=== PATIENT | female | born 1950 | race Caucasian/White ===

== ENCOUNTER 2016-06-19 09:46 | Day surgery (SDC) | payer OTHER ==
--- NOTE | ~2016-06-19 | OP ---
Record Of Operation [facility] [address] [place]. [address] NAME: JERI BERNARD : 50 STATUS : [facility]#: [id number] AGE: 65 ADM/REG DATE : 06/19/16 MR#: [id number] REPORT SERV DATE: 06/19/16 DICTATED BY: ANURADHA FORTE III DATE: 06/19/16 REPORT STATUS : Draft TRANSCRIBED BY: MODJeanie DATE: 06/19/16 DATE OF PROCEDURE: 06/19/2016 PREOPERATIVE DIAGNOSIS: Decubitus ulcer of the right buttocks with extension to the sacral area that has failed to respond to in-clinic debridements with a piece of inflammatory tissue that was fairly large in the central portion that could not be removed in the clinic. POSTOPERATIVE DIAGNOSIS: Decubitus ulcer of the right buttocks with extension to the sacral area that has failed to respond to in-clinic debridements with a piece of inflammatory tissue that was fairly large in the central portion that could not be removed in the clinic. PROCEDURE: Excisional debridement of the sacrum and right buttock area that was excisional using a Versajet, Bovie, and pickups and scissors. The Versajet was set on 10. The tissue was found to have slough inflammatory fat necrosis with purulent changes and a 4 x 5 cm mass that was in the right side of the sacral portion of the ulceration. The debridement all the way to the full muscles down to the bone, but not into the bone. The appearance, size, and postoperative dimensions showed it to have a clean bed with viable tissues and no purulence. Dimension were 12 x 3.3 x 1.8 with a tunnel at 9 o'clock that was 4.5 cm. Postoperative diagnosis is decubitus ulcer with devitalized tissue, mass in the central portion and seropurulent changes within the ulcer itself. The wound was dressed with Surgicel at the base as a contact layer and a wound VAC silver sponge. SURGEON: Anuradha Forte M.D. PHLEBOTOMY TECHNICIAN: Jessica Forte RN, [facility] ANESTHESIA: General with the patient in the prone gigi-knife position. ESTIMATED BLOOD LOSS: 20 mL. DRAINS USED: Wound VAC with silver sponge at 125 mmHg vacuum constant mode. Pathology was sent as well as culture and sensitivity for anaerobic, aerobic, Gram stain, fungal AFB. The patient will be sent home following her recovery. DESCRIPTION OF PROCEDURE: Time-out was called and after time-out had been agreed upon with no distention, the area of the patient's right buttocks and sacral region were prepped and draped in the operative field. The central portion of the opening of the patient's wound was explored and a retractor used to pull the tissue over enough to examine the inflammatory mass that was loosely nonadherent to surrounding tissues, but adhered to the sacral fascia. Using a Bovie current, the inflammatory mass was mobilized and excised. It was dissected and part sent for culture and sensitivity and the other part sent for pathologic evaluation. The area was then debrided over its entirety with the Versajet on a #10 setting. Bleeding was profuse, but easily controllable with cautery. The base of the ulceration had some undermining circumferentially that was about 2 cm. There was a 4.5 cm tunnel that was connecting to a 2 x 2.5 cm ulceration that was more over the area of the sacrum where as the larger opening and the patient initially encountered was a 6 x 7 cm right buttock decubitus Record Of Operation [facility] [address] [place]. [address] NAME: JERI BERNARD : 50 STATUS : [facility]#: [id number] AGE: 65 ADM/REG DATE : 06/19/16 MR#: [id number] REPORT SERV DATE: 06/19/16 DICTATED BY: ANURADHA FORTE III DATE: 06/19/16 REPORT STATUS : Draft TRANSCRIBED BY: ESDRASL DATE: 06/19/16 that communicated with a skin isthmus of 4.5 cm. This skin isthmus was not opened since we could get adequate exposure without sacrificing this otherwise normal viable tissue. After the area had been completely cleaned and good hemostasis achieved, Surgicel was placed down as a contact layer and silver sponge applied with wound VAC. The patient was sent back to the post anesthesia care unit in good condition. Estimated blood loss 20 mL. There were no complications. 2 g of Ancef were given to cover the patient's E. coli grown from the last cultures, but will not keep her on long-term antibiotics since we have excised the majority of the bulk of all infected tissue. RB/LUIS ALBERTO Anuradha Forte III, M.D. / [id number] CC: Glen Stanley III, M.D. [facility]
[~2016-06-19 09:46] MED LIST: ACCUNE1 INH; ADVIL PO; AMIT100 PO; ARAVA20 PO; B COMPLETE OR; BEN25 PO; DEPASPRINK PO; DILAUDID4 MG/ML IM; ESTRACE1 MG PO; ESTRATESHS PO; FLEX PO; FOLIC PO; HEMOCYTE PLUS PO; KLONO1 PO; L20 PO; L40 PO; LEVOTHROID75 MCG PO; LEVOTHROID88 MCG PO; LEVOTHYROXIN100 MCG PO; LIOR10 PO; LORT7 PO; LUNESTA3 MG PO; LYRICA100 MG PO; MELATONIN5 M1 PO; MEMANTINE PO; METHATAB5B PO; MORPHINE PUMP; NAMENDA10 MG PO; NAMENXR14 PO; NAP250 PO; NEO-SYNEPHRI0.05 % NAS; ORAPRED ODT10 MG OR; P5 PO; PAIN PUMP; PERCOCET1 TA4 PO; PERCOCET1 TA5 PO; PLAQ200B PO; PR25 PO; PREM9 PO; PRILO PO; PRILOSEC OTC20 MG PO; ROXICODONE15 MG PO; SAS500 PO; SAVELLA100 MG PO; SAVELLA50 MG PO; SEROQUEL300 MG PO; SOMATAB PO; SPIRIVA INH; SYN075 PO; VITAMIN D31000 UNIT PO; [UNRECOGNIZED DRUG - REMARK]
[2016-06-19 10:15] LABS: HEMOGLOBIN 11.4 g/dL (12.0-16.0); MEAN CORPUSCULAR HEMOGLOB 27.6 pg (26.0-34.0); PLATELET COUNT 283 10/3/uL (150-400); RED CELL COUNT 4.13 10/6/uL (4.0-5.6); WHITE BLOOD CELLS 15.6 10/3/uL (4.5-10.5)
[2016-06-19 10:17] LABS: MANUAL DIFF YES %
[2016-06-19 10:21] LABS: PARTIAL THROMBO TIME 27.7 SEC (22.5-37.2); PROTIME (NOT ORD) 13.3 SEC (12.0-14.5)
[2016-06-19 10:31] LABS: A/G RATIO 0.6 (0.7-1.9); ALKALINE PHOSPHATASE 95 U/L (45-117); BUN (BLOOD UREA NITROGEN) 25 MG/DL (6-23); CALCIUM, SERUM 9.4 MG/DL (8.5-10.4); CHLORIDE, SERUM 108 MMOL/L (96-112); CO2 (CARBON DIOXIDE) 31 MMOL/L (24-34); CREATININE 1.31 MG/DL (0.55-1.02); GFR AFRICAN AMERICAN 49 ML/MIN (>=60); GFR NON AFRICAN AMERICAN 43 ML/MIN (>=60); GLOBULIN 4.9 G/DL (2.5-4.1); GLUCOSE, SERUM 107 MG/DL (60-99); POTASSIUM, SERUM 4.3 MMOL/L (3.5-5.3); SGOT(AST) 16 U/L (5-40); SGPT(ALT) 21 U/L (5-65); SODIUM, SERUM 144 MMOL/L (135-148); TOTAL BILIRUBIN 0.1 MG/DL (0-1.2); TOTAL PROTEIN 7.9 G/DL (6.0-8.5)
[2016-06-19 10:32] LABS: BAND NEUTROPHILS 2 %; LYMPHOCYTES 12 %; LYMPHOCYTES ABSOLUTE (CALC) 1.87 10/3/uL (0.67-4.30); MONOCYTES 12 %; MONOCYTES ABSOLUTE (CALC) 1.87 10/3/uL (0.21-1.20); NEUTROPHILS ABSOLUTE (CALC) 11.86 10/3/uL (2.02-8.40); PLATELET ESTIMATE ADQ (ADEQUATE); SEGMENTED NEUTROPHIL (0) 74 %; TOTAL NUCLEATED CELLS 100
[2016-06-19 10:33] LABS: RBC MORPHOLOGY NORM (NORMAL)
[2016-08-26] MEDS ORDERED: AMITRIPTYLIN150 MG PO (15:45)
[2016-08-26] MEDS ORDERED: ESTRACE1 MG PO (15:45)
[2016-08-26] MEDS ORDERED: DEPASPRINK PO (15:46)
[2016-08-26] MEDS ORDERED: LEVOTHYROXIN50 MCG PO (15:47)
[2016-08-26] MEDS ORDERED: SEROQUEL300 MG PO (15:47)
[2016-08-26] MEDS ORDERED: NAMENDA10 MG PO (15:47)
[2016-08-26] MEDS ORDERED: P1 PO (15:47)
[2016-08-26] MEDS ORDERED: MULTIVIT/MIN PO (15:48)
[2016-08-26] MEDS ORDERED: ALBUTEROL0.083 % INH (15:48)
[2016-08-26] MEDS ORDERED: SOMATAB PO (15:48)
[2016-08-26] MEDS ORDERED: FERROUS SULF325 M1 PO (15:48)
[2016-08-26] MEDS ORDERED: DUONEB INH (15:49)
[2016-08-26] MEDS ORDERED: SAVELLA100 MG PO (15:49)
[2016-08-26] MEDS ORDERED: DSS PO (17:44)
[2016-08-26] MEDS ORDERED: MIRALAX POWDER1 PKT PO (17:45)
[2016-08-30] MEDS ORDERED: PRILO PO (09:55)
[2016-08-30] MEDS ORDERED: CEFADROXIL1 GM PO (09:56)
[2016-08-30] MEDS ORDERED: PROBIOTIC PO (09:56)
[2016-09-24] MEDS ORDERED: AMOXIL500 MG PO (10:46)
[2016-09-24] MEDS ORDERED: KRISTALOSE20 GM PO (10:48)
[2016-09-24] MEDS ORDERED: SENTAB PO (10:57)
[2016-09-24] MEDS ORDERED: P1 PO (11:07)
== END 2016-06-19 18:33 | disposition home or self-care (01) ==
LOC: SDC 09:46
PROVIDERS: Surgery
PROC: 0JB70ZZ Excision of Back Subcutaneous Tissue and Fascia, Open Approach (ICD-10-PCS; principal; 2016-06-19 11:00)
DX: L89.319 Pressure ulcer of right buttock, unspecified stage (principal); E03.9 Hypothyroidism, unspecified; G47.33 Obstructive sleep apnea (adult) (pediatric); K21.9 Gastro-esophageal reflux disease without esophagitis; G30.9 Alzheimer's disease, unspecified; F02.80 Dementia in other diseases classified elsewhere, unspecified severity, without behavioral disturbance, psychotic disturbance, mood disturbance, and anxiety; J44.9 Chronic obstructive pulmonary disease, unspecified; D64.9 Anemia, unspecified; F41.9 Anxiety disorder, unspecified; R33.9 Retention of urine, unspecified; M06.9 Rheumatoid arthritis, unspecified; Z88.5 Allergy status to narcotic agent; Z85.41 Personal history of malignant neoplasm of cervix uteri; Z90.49 Acquired absence of other specified parts of digestive tract; Z90.710 Acquired absence of both cervix and uterus; Z98.890 Other specified postprocedural states
CPT/HCPCS: 80053; 85025; 85610; 85730; 87015; 87070; 87075; 87077; 87102; 87116; 87186; 87205; 88304; 93005; J0690; J2250; J2270; J2405; J2710; J3010; P9045

== ENCOUNTER 2016-07-07 20:05 | Inpatient (IN) | payer OTHER ==
--- NOTE | ~2016-07-07 | CN ---
Consultation Report [facility] [address] [place]. [address] NAME: JERI BERNARD : 50 STATUS : ADM IN [facility]#: [id number] AGE: 65 ADM/REG DATE : 07/07/16 MR#: [id number] REPORT SERV DATE: 07/08/16 DICTATED BY: ANURADHA FORTE III DATE: 07/08/16 REPORT STATUS : Draft TRANSCRIBED BY: MODL DATE: 07/08/16 DATE OF CONSULTATION: 07/08/2016 HISTORY OF PRESENT ILLNESS: The patient is a 65-year-old debilitated female, known to me from [facility]up [facility]. The patient was admitted on 07/07/2016 with generalized weakness and shaking and leukocytosis. She was noted to be with change in her condition prompting an emergency room evaluation. She has a significant history with wound issues with a stage IV decubitus ulceration in the sacrum that was surgically treated by this physician on 06/19/2016 and operating room debridement, culture, and wound VAC application. At that time, the patient had a culture done that showed Enterococcus avium, group D E. coli, and Morganella morganii organisms as well as a diphtheroid organism that was not identified. The patient also noted to have ulcers of her lower extremities. Patient's history given by her on admission said that she had been doing well until she started getting shaky and was developing a weakness so severe that she was passing out. Recently, she said she had been taken off her levothyroxine by her primary care physician without stated indication. The patient has been followed with a wound VAC per home health care application, but has not been seen in the clinic for followup by this physician since her surgery on 06/19/2016 even though she was supposed to be followed up before now. She is also on BiPAP at home. She was noted to have a leukocytosis, acute kidney injury with blood pressure 106/38 and when she arrived that responded to fluid boluses. The patient has a past history of COPD, obstructive sleep apnea on BiPAP, gastroesophageal reflux disease, hypothyroidism, dementia, chronic pain, stage IV decubitus ulcer of the sacrum, and has a manic predominant bipolar disorder. SOCIAL HISTORY: Negative for alcohol, tobacco, or illegal drugs. FAMILY HISTORY: Noncontributory. PHYSICAL EXAMINATION: GENERAL: The patient is an ill-appearing female, in no acute distress. HEENT: Unremarkable. NECK: Supple. HEART: Regular rate and rhythm. CHEST: Relatively clear with diminished inspiratory effort. She had some neuropathy in her lower extremities and ulcerations there. She has a large sacral decubitus which is relatively clean and with some tunneling effect from right to left with a dimension of 12 x 3.3 x 1.8 with a tunnel at the 9 o'clock position that was 4.5 cm Consultation Report [address] [place]. [address] NAME: JERI BERNARD : 50 STATUS : ADM IN PAT#: [id number] AGE: 65 ADM/REG DATE : 07/07/16 MR#: [id number] REPORT SERV DATE: 07/08/16 DICTATED BY: ANURADHA FORTE III DATE: 07/08/16 REPORT STATUS : Draft TRANSCRIBED BY: LUIS ALBERTO DATE: 07/08/16 in length. Her wound VAC had been removed and wet-to-dry dressings placed on admission. The ulcerations of her lower extremities were noted and there is a lateral small ulceration of the right lateral ankle and a medial ulceration of the left foot, both of which were relatively clean and can be treated without mechanical debridement using Santyl. IMPRESSION: She has decubitus ulcers of the sacrum, bilateral lower extremities at the ankle and foot level, none of which are acute or potentially contributing to her sepsis or leukocytosis. We will resume vacuum therapy to the sacral wound and Santyl to the lower extremity wounds and follow her up in the [facility]. JANELL/LUIS ALBERTO Anuradha Forte III, M.D. / [id number] CC: Rolando Lezama Jr, MD Mario Mariani, M.D.
--- NOTE | ~2016-07-07 | CN ---
Consultation Report [facility] [address] [place]. [address] NAME: JERI BERNARD : 50 STATUS : ADM IN PAT#: [id number] AGE: 65 ADM/REG DATE : 07/07/16 MR#: [id number] REPORT SERV DATE: 07/09/16 DICTATED BY: LUPE FERNÁNDEZ DATE: 07/09/16 REPORT STATUS : Draft TRANSCRIBED BY: MODJeanie DATE: 07/09/16 DATE OF CONSULTATION: 07/09/2016 HISTORY: This is a 65-year-old white female, who has been admitted to the hospital on 07/07/2016 with weakness and general debility. She is chronically ill. She and her say she has had about 17 different back surgeries for multilevel back problems. She has limited mobility, although she says she ambulate some, she spends most of her time in bed. She has been found during this admission to have urinary retention with a residual volume of over 1000 mL upon catheterization. She says that she did not even feel her distended bladder. She typically voids. She feels like she voids with a decent stream of urine at home, although her tells me that she essentially voids completely by Crede maneuver. She also voids very frequently in small amounts. She has occasional urinary incontinence, but not that often. She reports an occasional urinary tract infection, but only perhaps one a year or so. Currently, she has a Mitchell catheter indwelling. She denies any previous history of renal disease or stone. She has multiple medical issues. Aside from her back problems, she has stage IV decubitus ulcer along with other skin ulcers. She has been seen by Dr. Forte in the clinic and actually had a recent debridement of her decubitus. She also has bipolar disorder, question of dementia, reflux, sleep apnea, COPD. SOCIAL HISTORY: She is . She does not drink or smoke. MEDICATIONS: Include Elavil, Depakote, Seroquel, albuterol, Soma, Estrace, iron, Namenda, Savella, prednisone. ALLERGIES: SHE IS ALLERGIC TO METHOTREXATE. PHYSICAL EXAMINATION: GENERAL: She is a pleasant white female. She appears in good spirits. She is alert, oriented, and conversive. She is afebrile. VITAL SIGNS: Stable. HEENT: Pupils equal, round, and reactive. Extraocular movements intact. Oropharynx is clear. NECK: Supple. No adenopathy. LUNGS: Clear. HEART: Regular. ABDOMEN: Soft, nontender. GENITOURINARY: Bladder is not palpable. There is a Mitchell catheter draining clear urine, indwelling. Urine output has been 1750 mL. LABORATORY VALUES: Creatinine on admission was 1.94, today it is 1.13. White cell count 9.6, H and H 10 and 32. Urinalysis is negative. IMPRESSION: 1. Urinary retention, which may be chronic now status post Mitchell catheter placement. 2. Chronic voiding dysfunction (voiding with Crede maneuver), likely secondary to a Consultation Report [address] [place]. [address] NAME: JERI BERNARD : 50 STATUS : ADM IN [facility]#: [id number] AGE: 65 ADM/REG DATE : 07/07/16 MR#: [id number] REPORT SERV DATE: 07/09/16 DICTATED BY: LUPE FERNÁNDEZ DATE: 07/09/16 REPORT STATUS : Draft TRANSCRIBED BY: LUIS ALBERTO DATE: 07/09/16 hypotonic neurogenic bladder. 3. Multilevel back disease status post multiple back surgeries. 4. Bipolar disorder, on multiple medications. 5. Possible dementia. 6. Acute renal insufficiency, improving. 7. Limited mobility. 8. History of decubitus as well as other skin ulcerations. 9. Chronic obstructive pulmonary disease. 10.Sleep apnea. RECOMMENDATIONS: I am going to check a non-contrast CT of her abdomen and pelvis to rule out hydronephrosis given what I suspect is a chronic bladder emptying problem. Her bladder dysfunction could be multifactorial resulting from neurologic injury from her multiple back surgeries and also her medications for bipolar disease could be contributory as well. At any rate, I suspect she is going to need a Mitchell for the foreseeable future. Neither she nor her have any interest in doing clean intermittent catheterization. For now, I would leave her Mitchell indwelling and will plan on home health changing it anywhere from every two to four weeks. I will plan on scheduling an outpatient cystoscopic exam and eventual urodynamic studies as well to help decide on long-term management. Thank you for the consult. CYNTHIA/LUIS ALBERTO Lupe Fernández M.D. / [id number] CC: Rolando Lezama Jr, MD Mario Mariani, M.D.
--- NOTE | ~2016-07-07 | DS ---
Discharge Summary [facility] [address] [place]. [address] NAME: JERI BRENARD : 50 STATUS : DIS IN PAT#: [id number] AGE: 65 ADM/REG DATE : 07/07/16 MR#: [id number] REPORT SERV DATE: 07/11/16 DICTATED BY: SCOTT VELASQUEZ DATE: 07/10/16 REPORT STATUS : Draft TRANSCRIBED BY: MODL DATE: 07/10/16 ADMISSION DATE: 07/07/2016 DISCHARGE DATE: 07/10/2016 BRIEF DISCHARGE DIAGNOSES: 1. Generalized weakness. 2. Stage IV sacral decubitus. 3. Acute kidney injury, now resolved. 4. Leukocytosis, now resolved. 5. Obstructive sleep apnea with BiPAP, but noncompliant. 6. Chronic obstructive pulmonary disease. 7. Gastroesophageal reflux. 8. Hypothyroidism. 9. Dementia. 10.Chronic pain. 11.Bipolar disorder. 12.Urinary retention, status post Mitchell catheter placement. CONSULTANTS DURING THIS HOSPITALIZATION: 1. Ben Forte M.D. of Wound Care Surgery. 2. Gopal Logan M.D. and Alex Fenton M.D. of Urology. INVASIVE PROCEDURES DONE DURING THIS HOSPITALIZATION: None. BRIEF HISTORY OF PRESENT ILLNESS: The patient is a 65-year-old female with stage IV sacral decubitus, came in with generalized weakness, shaking, so she was admitted. For detailed history and physical exam, please see note dictated by Dr. Alfredo Vanegas on 07/07/2016. HOSPITAL COURSE: After being admitted to the hospital, this patient was cared for by Dr. Rolando Lezama. According to him, there was no urinary tract infection, so oral antibiotics were discontinued. Dr. Forte saw the patient in consultation and recommended wound vacuum and no further debridement, not a source of leukocytosis as he had mentioned previously. This patient was given IV hydration. She was having difficulty voiding. A Mitchell catheter was placed and that seemed to significantly improve her kidney function. She also had suffered from some constipation that has now resolved. She has obstructive sleep apnea and has been noncompliant with BiPAP in the home setting. She was given nebulizing treatments for her COPD. Currently, she is doing well medically, her creatinine today is 0.9. Her white count has normalized to 8.8, and she is medically stable enough to be sent to rehab. DISCHARGE DISPOSITION: To [facility] for [facility]. DISCHARGE ACTIVITY: Per facility. DISCHARGE DIET: Low-sodium diet. Discharge Summary [facility] [place]. [address] NAME: JERI BERNARD : 50 STATUS : DIS IN PAT#: [id number] AGE: 65 ADM/REG DATE : 07/07/16 MR#: [id number] REPORT SERV DATE: 07/11/16 DICTATED BY: SCOTT VELASQUEZ DATE: 07/10/16 REPORT STATUS : Draft TRANSCRIBED BY: LUIS ALBERTO DATE: 07/10/16 DISCHARGE MEDICATIONS: Santyl ointment to the ulcer and wound vacuum, Elavil 300 mg once at bedtime, Savella 100 mg once daily, Soma 350 mg every six hours scheduled for muscle relaxant, Depakote 500 mg once at bedtime, estradiol 1 mg every morning, iron 325 mg once daily, Namenda 10 mg twice daily, Seroquel 300 mg once at bedtime, prednisone 5 mg p.o. every morning, maintenance therapy for rheumatoid arthritis. Albuterol one neb every four hours p.r.n. for shortness of breath. Levothyroxine 50 mcg once daily. DISCHARGE FOLLOWUP: With Dr. Per Masters post rehab, with Dr. Ben Forte in the [facility] post rehab. More than 35 minutes spent planning this patient's discharge, reconciling medications, and arranging proper transfer to rehab and documenting this discharge. ARABELLA/LUIS ALBERTO Scott Velasquez M.D. / [id number] CC: Glen Aldrich M.D. Robert Barnett III, M.D.
--- NOTE | ~2016-07-07 | HP ---
History And Physical [place] [id number] [facility] [place]. [address] NAME: JERI BERNARD : 50 STATUS : ADM IN [facility]#: [id number] AGE: 65 ADM/REG DATE : 07/07/16 MR#: [id number] REPORT SERV DATE: 07/08/16 DICTATED BY: ALFREDO BERMAN DATE: 07/08/16 REPORT STATUS : Draft TRANSCRIBED BY: MODL DATE: 07/08/16 DATE OF ADMISSION: 07/07/2016 CHIEF COMPLAINT: Generalized weakness and shaking. HISTORY OF PRESENT ILLNESS: This is a 65-year-old female who presents to the emergency room, has a history of COPD; hypothyroidism; stage IV decubitus ulcer, was seen by Dr. Forte; bipolar disorder; obstructive sleep apnea, noncompliant with therapy, who presents to the emergency room at [facility] with the above-mentioned complaint. History is obtained from the patient, her who is at bedside, and reviewing data available on the [employer] system. According to her and the patient, she had been in her usual state of health until about a month or so, when she started having shaking if she gets up to use the bedside commode or to walk. This has progressively worsened and they feel she is too weak, almost to the point of passing out. For some unclear reason, she has been taken off her levothyroxine by her primary care physician as well, no clear indication why. She also has a sacral decubitus ulcer followed by [facility], but seen by and debrided by Dr. Forte here in the [facility] as well. She has also not been compliant with using her BiPAP at home. With all this going on, she was getting weaker by the day and is unable to perform activities of daily living by herself. They decided to come to the emergency room to be evaluated. In the emergency room, initial workup revealed she had leukocytosis, acute kidney injury, and her initial blood pressure upon arrival was 106/30 which slowly increased to 116/81 with fluid boluses. Hospitalist Service was asked to admit her for further evaluation and treatment. At the time of my evaluation, she was comfortable at rest in bed and not in any acute distress. She denied any chest pain or palpitations at rest. She had no orthopnea. She had no cough, hemoptysis, night sweats, or weight loss. She denied any recent falls or loss of consciousness. No history of fevers or chills. No history of nausea, vomiting, or diarrhea. No other history of recent travel or exposures other than those mentioned above. PAST MEDICAL HISTORY: Significant for COPD; obstructive sleep apnea with BiPAP; gastroesophageal reflux disease; hypothyroidism; dementia; chronic pain; stage IV decubitus ulcer, seen by Dr. Forte and followed by Home Health. She also has manic predominant bipolar disorder. SOCIAL HISTORY: She does not smoke, drink, or use recreational drugs. FAMILY HISTORY: Noncontributory. MEDICATIONS: Her medications at home were reviewed by me in the chart today and reordered by me. History And Physical [address] [address] NAME: JERI BERNARD : 50 STATUS : ADM IN [facility]#: [id number] AGE: 65 ADM/REG DATE : 07/07/16 MR#: [id number] REPORT SERV DATE: 07/08/16 DICTATED BY: ALFREDO BERMAN DATE: 07/08/16 REPORT STATUS : Draft TRANSCRIBED BY: LUIS ALBERTO DATE: 07/08/16 REVIEW OF SYSTEMS: As in history of present illness. All other systems were reviewed in detail and are quite unremarkable. PHYSICAL EXAMINATION: GENERAL: This is a pleasant 65-year-old, not in any acute distress. HEENT: Head is atraumatic, normocephalic. She is alert, awake, oriented to time, place, and person. Pupils are equal, reacting to light and accommodating. External ocular muscles are intact. Membranes are moist and pink. Sclerae are nonicteric. NECK: Supple with no jugular venous distention, lymphadenopathy, or thyromegaly. LUNGS: Clear to auscultation with no wheezes, rubs, or crackles. HEART: Heart sounds were regular with no murmurs, rubs, or gallops. ABDOMEN: Soft, nontender. Bowel sounds are present. EXTREMITIES: Showed no cyanosis, clubbing, or edema. NEUROLOGIC: Grossly intact. No focal sensory or motor deficits. Higher functions appeared intact. Gait was not examined. SKIN: On her back, I did get to see her decubitus ulcer with a wound VAC in place. The area looks clean and dry. VITAL SIGNS: Today showed a temperature of 97.4, pulse 89, respirations 15 a minute. Blood pressure at the time of my evaluation was 118/59, oxygen saturations were 99%, breathing 3 L of oxygen via nasal cannula. LABORATORY DATA: Reviewed on the [employer] system showed sodium of 140, potassium 4.0, chloride 104, and CO2 of 30. BUN was 47 with a creatinine of 1.94, which is up from her baseline of 1.0 to 1.3. Her blood glucose was 116. Liver numbers appeared within normal limits. CPK was 25. AST and ALT were within normal limits so was alkaline phosphatase. Her troponin was 0.02 today. Her lactate was 1.2 today and CBC showed a white blood cell count of 14,700; hemoglobin was 11.4; hematocrit 36.3; and platelet count was 242,000. No imaging was performed in the emergency room today. Urinalysis was not done in the ER. A 12-lead EKG done in the emergency room was reviewed and interpreted by me. There is normal sinus rhythm with sinus arrhythmia at a rate of 74 per minute. IMPRESSION: 1. Generalized weakness. 2. Leukocytosis. 3. Acute kidney injury. 4. Obstructive sleep apnea with BiPAP, but noncompliant. 5. Chronic obstructive pulmonary disease. 6. Gastroesophageal reflux disease. 7. Hypothyroidism. 8. Dementia. 9. Chronic pain. 10.Stage IV decubitus ulcer, seen by Dr. Forte. 11.Bipolar disorder. PLAN: We will admit Ms. Bernard to the Hospitalist Service with telemetry for close monitoring. History And Physical [address] [address] NAME: JERI BERNARD : 50 STATUS : ADM IN [facility]#: [id number] AGE: 65 ADM/REG DATE : 07/07/16 MR#: [id number] REPORT SERV DATE: 07/08/16 DICTATED BY: ALFREDO BERMAN DATE: 07/08/16 REPORT STATUS : Draft TRANSCRIBED BY: LUIS ALBERTO DATE: 07/08/16 After cultures are obtained, we will start her on empiric IV antibiotics at this time, check a urinalysis, and check a procalcitonin level. We will also start her on IV fluids for volume resuscitation, check her chemistry and electrolytes in the morning and replace as needed. Meanwhile, we will go ahead and maximize her bronchodilator treatments, and continue her supplemental oxygen therapy. We will also check her TSH and continue thyroid replacement therapy. We will consult Wound Care to see her and also Dr. Forte. We will continue all other medications and treatments at this time and place her on unfractionated heparin for DVT prophylaxis while she is here. I have discussed the above plans with the patient and her , questions were answered, and they are agreeable to the above recommendations. Hospitalist Service will be following her during her stay here. /LUIS ALBERTO Alfredo Berman M.D. / [id number] CC: Hal Perez M.D.
[2016-07-07 21:48] LABS: ER CBC TAT 0 Hrs 05 Mins; HEMATOCRIT 36.3 % (36.0-48.0); HEMOGLOBIN 11.4 g/dL (12.0-16.0); MEAN CORPUS HGB CONC 31.4 g/dL (32.0-36.0); MEAN CORPUSCULAR HEMOGLOB 28.9 pg (26.0-34.0); MEAN CORPUSCULAR VOLUME 91.9 fL (80-100); MEAN PLATELET VOLUME 8.9 fL (9.2-13.0); PLATELET COUNT 242 10/3/uL (150-400); RBC DISTRIBUTION WIDTH 19.5 % (12.0-16.0); RED CELL COUNT 3.95 10/6/uL (4.0-5.6); WHITE BLOOD CELLS 14.7 10/3/uL (4.5-10.5)
[2016-07-07 21:49] LABS: MANUAL DIFF YES %
[2016-07-07 21:58] LABS: INTERNATIONAL NORMAL RATI 1.1 UNITS (-); PARTIAL THROMBO TIME 26.2 SEC (22.5-37.2); PROTIME (NOT ORD) 14.1 SEC (12.0-14.5)
[2016-07-07 22:03] LABS: ALBUMIN 2.9 G/DL (3.5-5.0); ALKALINE PHOSPHATASE 103 U/L (45-117); DIRECT BILIRUBIN < 0.1 MG/DL (0.0-0.4); INDIRECT BILIRUBIN(NOT ORDER) 0.1 MG/DL (0.1-0.9); SGOT(AST) 11 U/L (5-40); SGPT(ALT) 12 U/L (5-65); TOTAL BILIRUBIN 0.2 MG/DL (0-1.2); TOTAL PROTEIN 7.3 G/DL (6.0-8.5)
[2016-07-07 22:04] LABS: CALCIUM, SERUM 8.8 MG/DL (8.5-10.4); CHEST PAIN PROFILE TAT 0 Hrs 21 Mins; CHLORIDE, SERUM 104 MMOL/L (96-112); CO2 (CARBON DIOXIDE) 30 MMOL/L (24-34); CPK 25 U/L (0-200); GFR AFRICAN AMERICAN 31 ML/MIN (>=60); GFR NON AFRICAN AMERICAN 27 ML/MIN (>=60); GLUCOSE, SERUM 116 MG/DL (60-99); SODIUM, SERUM 140 MMOL/L (135-148); TROPONIN I <0.02 NG/ML (<0.05)
[2016-07-07 22:05] LABS: BUN (BLOOD UREA NITROGEN) 47 MG/DL (6-23); CREATININE 1.94 MG/DL (0.55-1.02); ER DIFF TAT 0 Hrs 22 Mins; SEGMENTED NEUTROPHIL (0) 75 %; TOTAL NUCLEATED CELLS 100
[2016-07-07 22:06] LABS: ANISOCYTOSIS 1+ (5-10/OIF) (0-5/OIF); BAND NEUTROPHILS 12 %; IMMATURE GRANS ABSOLUTE (CALC) 0.74 10/3/uL (0.0-0.11); LYMPHOCYTES 3 %; LYMPHOCYTES ABSOLUTE (CALC) 0.44 10/3/uL (0.67-4.30); METAMYELOCYTES 5 %; MONOCYTES 5 %; MONOCYTES ABSOLUTE (CALC) 0.74 10/3/uL (0.21-1.20); NEUTROPHILS ABSOLUTE (CALC) 12.79 10/3/uL (2.02-8.40); PLATELET ESTIMATE ADQ (ADEQUATE)
[2016-07-07] MEDS ORDERED: DEPASPRINK PO (22:48)
[2016-07-07] MEDS ORDERED: SEROQUEL300 MG PO (22:49)
[2016-07-07] MEDS ORDERED: ESTRACE1 MG PO (22:49)
[2016-07-07] MEDS ORDERED: SOMATAB PO (22:49)
[2016-07-07] MEDS ORDERED: AMIT100 PO (22:49)
[2016-07-07] MEDS ORDERED: SAVELLA100 MG PO (22:50)
[2016-07-07] MEDS ORDERED: NAMENDA10 MG PO (22:50)
[2016-07-07] MEDS ORDERED: P5 PO (22:52)
[2016-07-07] MEDS ORDERED: ALBUTEROL0.083 % INH (22:52)
[2016-07-07] MEDS ORDERED: FERROUS SULF325 M1 PO (22:52)
[2016-07-07] MEDS ORDERED: CIP5 PO (22:54)
[2016-07-08 02:25] LABS: PROCALCITONIN <0.05 ng/mL (<0.5)
[2016-07-08 03:38] LABS: ASCORBIC ACID (UR NOT ORDER) NEG (NEG); BILIRUBIN, URINE NEGATIVE (NEG); KETONE, URINE NEGATIVE (NEG); LEUKOCYTE ESTERASE(NOT OR NEG (NEG); WBC (NOT ORDERED) (RFLEX) < 1 (0-5)
[2016-07-08 05:28] LABS: BASOPHILS 0.2 %; BASOPHILS ABSOLUTE 0.02 10/3/uL (0.0-0.16); EOSINOPHILS 2.9 %; EOSINOPHILS ABSOLUTE 0.35 10/3/uL (0.0-0.53); HEMOGLOBIN 9.9 g/dL (12.0-16.0); IMMATURE GRANULOCYTES 3.9 %; IMMATURE GRANULOCYTES ABSOLUTE 0.47 10/3/uL (0.0-0.11); LYMPHOCYTES 8.6 %; LYMPHOCYTES ABSOLUTE 1.04 10/3/uL (0.67-4.30); MEAN CORPUS HGB CONC 31.5 g/dL (32.0-36.0); MEAN CORPUSCULAR HEMOGLOB 28.9 pg (26.0-34.0); MEAN CORPUSCULAR VOLUME 91.8 fL (80-100); MEAN PLATELET VOLUME 8.8 fL (9.2-13.0); MONOCYTES 7.9 %; MONOCYTES ABSOLUTE 0.96 10/3/uL (0.21-1.20); NEUTROPHILS 76.5 %; NEUTROPHILS ABSOLUTE 9.26 10/3/uL (2.02-8.40); PLATELET COUNT 216 10/3/uL (150-400); RBC DISTRIBUTION WIDTH 19.5 % (12.0-16.0); RED CELL COUNT 3.42 10/6/uL (4.0-5.6); WHITE BLOOD CELLS 12.1 10/3/uL (4.5-10.5)
[2016-07-08 05:29] LABS: HEMATOCRIT 31.4 % (36.0-48.0); MANUAL DIFF NO %
[2016-07-08 05:51] LABS: BUN (BLOOD UREA NITROGEN) 41 MG/DL (6-23); CALCIUM, SERUM 8.2 MG/DL (8.5-10.4); CHLORIDE, SERUM 106 MMOL/L (96-112); CO2 (CARBON DIOXIDE) 29 MMOL/L (24-34); CREATININE 1.62 MG/DL (0.55-1.02); GFR AFRICAN AMERICAN 38 ML/MIN (>=60); GFR NON AFRICAN AMERICAN 33 ML/MIN (>=60); GLUCOSE, SERUM 133 MG/DL (60-99); PHOSPHORUS, SERUM 2.3 MG/DL (2.5-4.5); POTASSIUM, SERUM 4.2 MMOL/L (3.5-5.3); SODIUM, SERUM 141 MMOL/L (135-148)
[2016-07-08] MEDS ORDERED: SYN.05 PO (10:51)
[2016-07-09 07:14] LABS: HEMOGLOBIN 10.1 g/dL (12.0-16.0); MEAN CORPUS HGB CONC 31.6 g/dL (32.0-36.0); MEAN CORPUSCULAR HEMOGLOB 29.2 pg (26.0-34.0); MEAN CORPUSCULAR VOLUME 92.5 fL (80-100); MEAN PLATELET VOLUME 9.1 fL (9.2-13.0); PLATELET COUNT 226 10/3/uL (150-400); RED CELL COUNT 3.46 10/6/uL (4.0-5.6); WHITE BLOOD CELLS 9.6 10/3/uL (4.5-10.5)
[2016-07-09 07:16] LABS: MANUAL DIFF YES %
[2016-07-09 07:23] LABS: BUN (BLOOD UREA NITROGEN) 23 MG/DL (6-23); CALCIUM, SERUM 8.4 MG/DL (8.5-10.4); CHLORIDE, SERUM 109 MMOL/L (96-112); CO2 (CARBON DIOXIDE) 25 MMOL/L (24-34); CREATININE 1.13 MG/DL (0.55-1.02); GFR AFRICAN AMERICAN 59 ML/MIN (>=60); GFR NON AFRICAN AMERICAN 51 ML/MIN (>=60); GLUCOSE, SERUM 107 MG/DL (60-99); POTASSIUM, SERUM 4.4 MMOL/L (3.5-5.3); SODIUM, SERUM 143 MMOL/L (135-148)
[2016-07-09 08:07] LABS: ANISOCYTOSIS 1+ (5-10/OIF) (0-5/OIF); BAND NEUTROPHILS 3 %; EOSINOPHILS 2 %; EOSINOPHILS ABSOLUTE (CALC) 0.19 10/3/uL (0.0-0.53); IMMATURE GRANS ABSOLUTE (CALC) 0.19 10/3/uL (0.0-0.11); LYMPHOCYTES 20 %; LYMPHOCYTES ABSOLUTE (CALC) 1.92 10/3/uL (0.67-4.30); METAMYELOCYTES 1 %; MONOCYTES 5 %; MONOCYTES ABSOLUTE (CALC) 0.38 10/3/uL (0.21-1.20); NEUTROPHILS ABSOLUTE (CALC) 6.91 10/3/uL (2.02-8.40); PLATELET ESTIMATE ADQ (ADEQUATE); SEGMENTED NEUTROPHIL (0) 69 %; TOTAL NUCLEATED CELLS 100
[2016-07-10 06:11] LABS: CALCIUM, SERUM 8.1 MG/DL (8.5-10.4); CHLORIDE, SERUM 112 MMOL/L (96-112); CO2 (CARBON DIOXIDE) 26 MMOL/L (24-34); GFR AFRICAN AMERICAN 78 ML/MIN (>=60); GFR NON AFRICAN AMERICAN 67 ML/MIN (>=60); GLUCOSE, SERUM 121 MG/DL (60-99); POTASSIUM, SERUM 4.2 MMOL/L (3.5-5.3); SODIUM, SERUM 146 MMOL/L (135-148)
[2016-07-10 06:13] LABS: HEMATOCRIT 30.8 % (36.0-48.0); HEMOGLOBIN 9.6 g/dL (12.0-16.0); MEAN CORPUS HGB CONC 31.2 g/dL (32.0-36.0); MEAN CORPUSCULAR HEMOGLOB 28.9 pg (26.0-34.0); MEAN CORPUSCULAR VOLUME 92.8 fL (80-100); MEAN PLATELET VOLUME 8.7 fL (9.2-13.0); PLATELET COUNT 225 10/3/uL (150-400); RED CELL COUNT 3.32 10/6/uL (4.0-5.6); WHITE BLOOD CELLS 8.8 10/3/uL (4.5-10.5)
[2016-07-10 06:14] LABS: MANUAL DIFF YES %
[2016-07-10 06:17] LABS: BUN (BLOOD UREA NITROGEN) 13 MG/DL (6-23)
[2016-07-10 06:42] LABS: BAND NEUTROPHILS 3 %; EOSINOPHILS 4 %; EOSINOPHILS ABSOLUTE (CALC) 0.35 10/3/uL (0.0-0.53); IMMATURE GRANS ABSOLUTE (CALC) 0.18 10/3/uL (0.0-0.11); LYMPHOCYTES 19 %; LYMPHOCYTES ABSOLUTE (CALC) 1.67 10/3/uL (0.67-4.30); METAMYELOCYTES 1 %; MONOCYTES 4 %; MONOCYTES ABSOLUTE (CALC) 0.35 10/3/uL (0.21-1.20); MYELOCYTES 1 %; NEUTROPHILS ABSOLUTE (CALC) 6.25 10/3/uL (2.02-8.40); SEGMENTED NEUTROPHIL (0) 68 %; TOTAL NUCLEATED CELLS 100
[2016-07-10 06:43] LABS: ANISOCYTOSIS 1+ (5-10/OIF) (0-5/OIF); PLATELET ESTIMATE ADQ (ADEQUATE); RBC MORPHOLOGY ABN (NORMAL)
[2016-08-26] MEDS ORDERED: AMITRIPTYLIN150 MG PO (15:45)
[2016-08-26] MEDS ORDERED: ESTRACE1 MG PO (15:45)
[2016-08-26] MEDS ORDERED: DEPASPRINK PO (15:46)
[2016-08-26] MEDS ORDERED: P1 PO (15:47)
[2016-08-26] MEDS ORDERED: LEVOTHYROXIN50 MCG PO (15:47)
[2016-08-26] MEDS ORDERED: SEROQUEL300 MG PO (15:47)
[2016-08-26] MEDS ORDERED: NAMENDA10 MG PO (15:47)
[2016-08-26] MEDS ORDERED: FERROUS SULF325 M1 PO (15:48)
[2016-08-26] MEDS ORDERED: SOMATAB PO (15:48)
[2016-08-26] MEDS ORDERED: ALBUTEROL0.083 % INH (15:48)
[2016-08-26] MEDS ORDERED: MULTIVIT/MIN PO (15:48)
[2016-08-26] MEDS ORDERED: DUONEB INH (15:49)
[2016-08-26] MEDS ORDERED: SAVELLA100 MG PO (15:49)
[2016-08-26] MEDS ORDERED: DSS PO (17:44)
[2016-08-26] MEDS ORDERED: MIRALAX POWDER1 PKT PO (17:45)
[2016-08-30] MEDS ORDERED: PRILO PO (09:55)
[2016-08-30] MEDS ORDERED: PROBIOTIC PO (09:56)
[2016-08-30] MEDS ORDERED: CEFADROXIL1 GM PO (09:56)
[2016-09-24] MEDS ORDERED: AMOXIL500 MG PO (10:46)
[2016-09-24] MEDS ORDERED: KRISTALOSE20 GM PO (10:48)
[2016-09-24] MEDS ORDERED: SENTAB PO (10:57)
[2016-09-24] MEDS ORDERED: P1 PO (11:07)
== END 2016-07-10 15:12 | DRG 682 ==
LOC: ER 20:05 → 4SO 23:10
PROVIDERS: Emergency Medicine; Internal Medicine
DX: N17.9 Acute kidney failure, unspecified (principal); L89.154 Pressure ulcer of sacral region, stage 4; E11.621 Type 2 diabetes mellitus with foot ulcer; J44.9 Chronic obstructive pulmonary disease, unspecified; F03.90 Unspecified dementia, unspecified severity, without behavioral disturbance, psychotic disturbance, mood disturbance, and anxiety; L97.419 Non-pressure chronic ulcer of right heel and midfoot with unspecified severity; F31.10 Bipolar disorder, current episode manic without psychotic features, unspecified; E03.9 Hypothyroidism, unspecified; G47.33 Obstructive sleep apnea (adult) (pediatric); Z91.19 Patient's noncompliance with other medical treatment and regimen; R53.81 Other malaise; L97.529 Non-pressure chronic ulcer of other part of left foot with unspecified severity; R33.8 Other retention of urine; Z79.52 Long term (current) use of systemic steroids; Z88.8 Allergy status to other drugs, medicaments and biological substances; N31.2 Flaccid neuropathic bladder, not elsewhere classified; K59.00 Constipation, unspecified; M06.9 Rheumatoid arthritis, unspecified; G89.4 Chronic pain syndrome; G47.00 Insomnia, unspecified
CPT/HCPCS: 71010; 74176; 80048; 80076; 81001; 82550; 83605; 83735; 84100; 84145; 84443; 84484; 85025; 85610; 85730; 93005; 94640; 97161-GP; 97530-GP; 99285; A9270-GY; J2543; J3370